=== PATIENT | male | born 1970 | race Caucasian/White ===

== ENCOUNTER 2020-07-25 13:54 | Emergency (ER) | payer OTHER, SELFPAY ==
--- NOTE | ~2020-07-25 | CT_ITS ---
EXAMINATION: CT HEAD WITHOUT CONTRAST CLINICAL INFORMATION: Head injury COMPARISON: None TECHNIQUE: Contiguous axial imaging was performed from the skull base to vertex without intravenous administration of contrast. This CT examination was performed using dose optimization techniques as appropriate, variously including the following: *Automated exposure control *Adjustment of mA and/or kV according to patient size (this includes techniques or standardized protocols for targeted exams where dose is matched to indication/reason for exam; i.e. extremities or head) *Use of iterative reconstruction technique DLP: 807 mGy-cm FINDINGS: There is no evidence of acute intracranial hemorrhage or territorial infarction. No abnormal mass effect or midline shift is seen. Conrad to white matter differentiation is well preserved. No extra-axial fluid collections are identified. The ventricles are normal in size. There is no abnormal attenuation within the brain parenchyma. The osseous structures and soft tissues are normal. The mastoid air cells and visualized portions of the paranasal sinuses are well aerated. CT/CT head/brain wo con IMPRESSION: Unremarkable exam.
[2020-07-25 14:44] VITALS: BP 144/90; PULSE 96; RESP 16; TEMP 36.9; O2SAT 97; BMI 26.9
[2020-07-25] MEDS: Lidocaine HCl 2 % MPF 5 ML VIAL SUBCUT (15:05)
--- NOTE | 2020-07-25 15:11 | ED_ITS ---
HPI - Head Injury General Chief complaint: Wound/Laceration Stated complaint: eye lac Time Seen by Provider: 07/25/20 14:51 Source: patient Mode of arrival: ambulatory Limitations: no limitations History of Present Illness HPI Narrative: struck in head with crowbar resulting in pain and laceration to R eyebrow area no LOC, no AC therapy unsure tetanus occurred at work Complaint: head injury Onset (ago): minute(s) (just [employer]) Mechanism of Injury: work related injury Place: work Loss of Consciousness: no Location of injury: face Severity: moderate Quality: dull Radiation: none Other Injuries: laceration Associated symptoms: denies other symptoms Related Data Allergies Allergy/AdvReac Type Severity Reaction Status Date / Time No Known Allergies Allergy Verified 07/25/20 14:44 Review of Systems Review of Systems: Constitutional : No Fever, No Chills, Cardiovascular : No Chest Pain, No SOB Respiratory : No Dyspnea Gastrointestinal : No abdominal pain Musculoskeletal : No Joint Swelling Skin : No rash, positive skin laceration Neuro : No Weakness, No Numbness Psych : No SI/HI PMFSH Past Medical History Attestation statement: The following information was validated with the patient. Medical History Amputation finger History of fractured kneecap Social History Social History Smoked in Last 30 Days: No Use of substances other than those prescribed or required for medical reasons: No Substance Use Type Other:: chewing tobacco Advance Directives: No Advance Directives Information Provided: No Physical Exam Vital Signs: Vital Signs: Last Vital Signs Temp 98.5 F 07/25/20 14:44 Pulse 96 07/25/20 14:44 Resp 16 07/25/20 14:44 BP 144/90 H 07/25/20 14:44 Pulse Ox 97 07/25/20 14:44 Body Mass Index 26.9 Appearance: Alert. Oriented X3. No acute distress. Eyes: Pupils equal, round and reactive to light. no FB sensation ENT: Pharynx normal. R eyebrow area above 5cm jagged and swollen Neck: Normal inspection. Neck supple. CVS: Normal heart rate and rhythm. Pulses normal. Respiratory: No respiratory distress. Breath sounds normal. Abdomen: Soft and nontender. Skin: Skin warm and dry. Normal skin color. Normal skin turgor. Extremities: No lower extremity edema. No calf ttp Neuro: Oriented X 3. No motor deficit. No sensory deficit. Procedures Laceration Laceration 1: Site: face Side (If applicable): right Size (cm): 5 Description: linear and irregular Depth: simple, single layer Local Anesthetic: lidocaine 2% Amount of anesthesia used (mL): 5 Pre-repair: wound explored and irrigated extensively Skin layer closed with: other (prolene) Size (cm): 6-0 Number of sutures: 7 MDM - Head Injury MDM Narrative Medical decision making narrative: 50yo male with isolated head injury from crowbar at work , CT head for fracture ordered, will update tetanus and repair wound Discharge Plan Discharge Clinical Impression: Laceration Head injury Qualifiers: Encounter type: initial encounter Qualified Code(s): S09.90XA - Unspecified injury of head, initial encounter Patient Disposition: Home, Self-Care Instructions: Laceration (ED), Head Injury (ED) Additional Instructions: return to ED for any worsening symptoms or concerns sutures come out in 7 days - [address], watch for signs of redness, swelling, yellow drainage, fevers Stand Alone Forms: Work/School Release Interventions: ED Discharge Assessment Last Done: 07/25/20 16:03 Discharge Date/Time: 07/25/20 16:07
== END 2020-07-25 16:07 | disposition home or self-care (01) ==
PROVIDERS: Emergency Provider Emergency Medicine
DX: S01.111A Laceration without foreign body of right eyelid and periocular area, initial encounter (principal); S09.90XA Unspecified injury of head, initial encounter; Y00.XXXA Assault by blunt object, initial encounter; Y93.9 Activity, unspecified; Y92.9 Unspecified place or not applicable; Y99.0 Civilian activity done for income or pay
CPT/HCPCS: 70450; 90471; 90715; 99283; 99284